=== PATIENT | female | born 1970 | race Caucasian/White ===

== ENCOUNTER 2020-03-20 22:00 | Emergency (ER) | payer OTHER ==
[~2020-03-20 22:00] MED LIST: MACROBID100 MG PO
[2020-03-20 23:25] LABS: BASOPHIL 0.3 % (0-2); EOSINOPHIL 2.8 % (0-5); HCT 37.5 % (37.0-47.0); HGB 11.8 g/dl (12.5-16.0); LYMPHOCYTE 23.6 % (15-48); MCH 29.3 pg (25.0-31.0); MCHC 31.5 g/dL (32.0-36.0); MCV 93.1 fL (78.0-100.0); MPV 9.3 fL (6.0-9.5); NRBC 0; PLT 116 K/uL (150-400); RBC 4.03 M/uL (4.20-5.40); RDW 13.2 % (11.5-14.0); WBC 3.5 K/uL (4.0-10.5)
[2020-03-20 23:54] LABS: ALBUMIN 3.3 g/dL (3.4-5.0); BILIRUBIN - TOTAL 0.5 mg/dL (0.2-1.0); BUN/CREAT RATIO (CALC) 20.7 RATIO; CREATININE 0.58 mg/dL (0.51-0.95); GLOBULIN (CALCULATION) 4.1 g/dL; POTASSIUM 4.1 mmol/L (3.5-5.1); TOTAL PROTEIN 7.4 g/dL (6.4-8.2)
[2020-03-21 00:11] LABS: CORONAVIRUS 2019 SARS-COV-2 POSITIVE (NEGATIVE); INFLUENZA A NAA NEGATIVE (NEGATIVE)
[2020-03-21] MEDS ORDERED: PULMICORT0.5 MG/2 M NEB (01:01)
== END 2020-03-21 03:26 | disposition home or self-care (01) ==
LOC: FER 22:00
PROVIDERS: Emergency Medicine
DX: U07.1 COVID-19 (principal); I10 Essential (primary) hypertension; E03.9 Hypothyroidism, unspecified; Z79.899 Other long term (current) drug therapy
CPT/HCPCS: 36415; 71045; 80053; 83605; 85025; 87040; 87880; J2060; J7030; J7050; M0239; U0002

== ENCOUNTER 2020-03-25 12:21 | Emergency (ER) | payer OTHER ==
[~2020-03-25 12:21] MED LIST changes: +PULMICORT0.5 MG/2 M NEB
[2020-03-25 13:26] LABS: BASOPHIL 0.2 % (0-2); EOSINOPHIL 0.2 % (0-5); HCT 38.7 % (37.0-47.0); HGB 12.6 g/dl (12.5-16.0); LYMPHOCYTE 23.9 % (15-48); MCH 29.1 pg (25.0-31.0); MCHC 32.6 g/dL (32.0-36.0); MCV 89.4 fL (78.0-100.0); MONOCYTE 6.8 % (0-12); MPV 8.9 fL (6.0-9.5); NEUTROPHIL 68.1 % (41-80); NRBC 0; PLT 171 K/uL (150-400); RBC 4.33 M/uL (4.20-5.40); RDW 13.2 % (11.5-14.0); WBC 6.6 K/uL (4.0-10.5)
[2020-03-25 14:17] LABS: BUN/CREAT RATIO (CALC) 46.6 RATIO; CREATININE 0.58 mg/dL (0.51-0.95); POTASSIUM 3.4 mmol/L (3.5-5.1)
== END 2020-03-25 14:20 | disposition home or self-care (01) ==
LOC: FER 12:21
PROVIDERS: Emergency Medicine
DX: U07.1 COVID-19 (principal); I10 Essential (primary) hypertension; Z79.899 Other long term (current) drug therapy
CPT/HCPCS: 36415; 71045; 80048; 85025

== ENCOUNTER 2020-12-04 12:24 | Emergency (ER) | payer OTHER ==
[~2020-12-04] VITALS: Ht 160 cm; Wt 93.0 kg
[2020-12-04 14:45] LABS: BASOPHIL 0.6 % (0-2); EOSINOPHIL 1.7 % (0-5); HCT 39.1 % (37.0-47.0); HGB 12.5 g/dl (12.5-16.0); LYMPHOCYTE 21.9 % (15-48); MCH 29.1 pg (25.0-31.0); MCV 91.1 fL (78.0-100.0); MPV 9.7 fL (6.0-9.5); NEUTROPHIL 67.5 % (41-80); NRBC 0; PLT 145 K/uL (150-400); RBC 4.29 M/uL (4.20-5.40); RDW 13.6 % (11.5-14.0); WBC 6.3 K/uL (4.0-10.5)
[2020-12-04 14:59] LABS: BUN/CREAT RATIO (CALC) 37.9 RATIO; CREATININE 0.58 mg/dL (0.51-0.95); POTASSIUM 4.6 mmol/L (3.5-5.1)
[2020-12-04] MEDS ORDERED: MEDROL 4MG DOSEP4 MG PO (15:38)
== END 2020-12-04 16:05 | disposition home or self-care (01) ==
LOC: FER 12:24
PROVIDERS: Nurse Practitioner Family
DX: G89.29 Other chronic pain (principal); I10 Essential (primary) hypertension; Z79.899 Other long term (current) drug therapy; Z79.82 Long term (current) use of aspirin; Z86.16 Personal history of COVID-19
CPT/HCPCS: 36415; 71045; 80048; 83880; 85025; J1100

== ENCOUNTER 2021-01-31 18:39 | Emergency (ER) | payer OTHER ==
[~2021-01-31 18:39] MED LIST changes: +MEDROL 4MG DOSEP4 MG PO
[2021-01-31 23:41] LABS: BASOPHIL 0.8 % (0-2); EOSINOPHIL 0.7 % (0-5); HCT 37.5 % (37.0-47.0); LYMPHOCYTE 15.2 % (15-48); MCH 29.1 pg (25.0-31.0); MONOCYTE 8.3 % (0-12); MPV 9.6 fL (6.0-9.5); NEUTROPHIL 74.7 % (41-80); NRBC 0; PLT 212 K/uL (150-400); RBC 4.12 M/uL (4.20-5.40); RDW 13.7 % (11.5-14.0); WBC 8.8 K/uL (4.0-10.5)
[2021-01-31 23:56] LABS: ALBUMIN 4.2 g/dL (3.4-5.0); BILIRUBIN - TOTAL 0.5 mg/dL (0.2-1.0); BUN/CREAT RATIO (CALC) 6.2 RATIO; CREATININE 1.12 mg/dL (0.51-0.95); POTASSIUM 3.9 mmol/L (3.5-5.1); TOTAL PROTEIN 8.2 g/dL (6.4-8.2)
[2021-02-01 00:14] LABS: CORONAVIRUS 2019 SARS-COV-2 NEGATIVE (NEGATIVE); INFLUENZA A NAA NEGATIVE (NEGATIVE)
[2021-02-01] MEDS ORDERED: PROMETHAZINE/C120 ML PO (03:11)
== END 2021-02-01 06:54 | disposition home or self-care (01) ==
LOC: FER 18:39
PROVIDERS: Emergency Medicine
DX: R06.00 Dyspnea, unspecified (principal); U09.9 Post COVID-19 condition, unspecified; I10 Essential (primary) hypertension; Z20.822 Contact with and (suspected) exposure to COVID-19
CPT/HCPCS: 36415; 36600; 71045; 71275; 80053; 82803; 84484; 85025; 85379; 93005; J1885; J2930; J7030; Q9967; U0002

== ENCOUNTER 2021-04-19 16:10 | Emergency (ER) | payer OTHER ==
[~2021-04-19 16:10] MED LIST changes: +PROMETHAZINE/C120 ML PO
[2021-04-19 17:28] LABS: EOSINOPHIL 2.2 % (0-5); HGB 11.2 g/dl (12.5-16.0); LYMPHOCYTE 30.6 % (15-48); MCH 28.4 pg (25.0-31.0); MCV 88.8 fL (78.0-100.0); MONOCYTE 9.8 % (0-12); NEUTROPHIL 56.2 % (41-80); NRBC 0; PLT 179 K/uL (150-400); RBC 3.94 M/uL (4.20-5.40); RDW 13.2 % (11.5-14.0); WBC 5.9 K/uL (4.0-10.5)
[2021-04-19 18:42] LABS: ALBUMIN 3.7 g/dL (3.4-5.0); BILIRUBIN - TOTAL 0.4 mg/dL (0.2-1.0); BUN/CREAT RATIO (CALC) 9.2 RATIO; C-REACTIVE PROTEIN 0.3 mg/dL (<=0.90); CREATININE 0.65 mg/dL (0.51-0.95); FT4 (FREE T4) 0.9 ng/dL (0.76-1.46); GLOBULIN (CALCULATION) 4.6 g/dL; MAGNESIUM 1.9 mg/dL (1.8-2.4); POTASSIUM 3.5 mmol/L (3.5-5.1); TOTAL PROTEIN 8.3 g/dL (6.4-8.2)
[2021-04-19] MEDS ORDERED: FIORICET1 EACH PO (21:13)
== END 2021-04-19 22:08 | disposition home or self-care (01) ==
LOC: FER 16:10
PROVIDERS: Emergency Medicine
DX: E03.9 Hypothyroidism, unspecified (principal); R51.9 Headache, unspecified; I10 Essential (primary) hypertension; Z86.16 Personal history of COVID-19
CPT/HCPCS: 36415; 71045; 80053; 82728; 83615; 83735; 83880; 84145; 84439; 84443; 84484; 85025; 86140; 93005; C9113; J1885; J3030

== ENCOUNTER 2021-09-07 11:16 | Emergency (ER) | payer OTHER ==
[~2021-09-07 11:16] MED LIST changes: +FIORICET1 EACH PO
[2021-09-07 12:31] LABS: BASOPHIL 0.5 % (0-2); BILIRUBIN 1+ mg/dL (NEGATIVE); BLOOD NEGATIVE Ery/uL (NEGATIVE); CLARITY CLEAR (CLEAR); COLOR YELLOW (YELLOW); EOSINOPHIL 1.1 % (0-5); GLUCOSE (U) NORMAL (NORMAL); HCT 34.6 % (37.0-47.0); HGB 10.7 g/dl (12.5-16.0); LEUKOCYTES NEGATIVE Leu/uL (NEGATIVE); LYMPHOCYTE 13.8 % (15-48); MCHC 30.9 g/dL (32.0-36.0); MCV 90.6 fL (78.0-100.0); MPV 10.2 fL (6.0-9.5); NEUTROPHIL 75.3 % (41-80); NITRITE NEGATIVE (NEGATIVE); NRBC 0; PLT 157 K/uL (150-400); PROTEIN TRACE (LOW) mg/dL (NEGATIVE); RBC 3.82 M/uL (4.20-5.40); RDW 13.8 % (11.5-14.0); SPECIFIC GRAVITY >=1.030 (1.001-1.030); WBC 6.2 K/uL (4.0-10.5)
[2021-09-07 12:48] LABS: MUCOUS TRACE
[2021-09-07 12:50] LABS: CREATININE 0.6 mg/dL (0.51-0.95); POTASSIUM 4.1 mmol/L (3.5-5.1)
[2021-09-07 12:51] LABS: ALBUMIN 3.6 g/dL (3.4-5.0); BILIRUBIN - TOTAL 0.6 mg/dL (0.2-1.0); GLOBULIN (CALCULATION) 4.8 g/dL; TOTAL PROTEIN 8.4 g/dL (6.4-8.2)
[2021-09-07] MEDS ORDERED: ONDANSETRON ODT4 MG PO (13:01)
[2021-09-07] MEDS ORDERED: LOMOTIL1 EACH PO (13:01)
== END 2021-09-07 13:55 | disposition home or self-care (01) ==
LOC: FER 11:16
PROVIDERS: Emergency Medicine
DX: K52.9 Noninfective gastroenteritis and colitis, unspecified (principal); I10 Essential (primary) hypertension
CPT/HCPCS: 36415; 74022; 80053; 81001; 85025; J2405; J7030

== ENCOUNTER 2021-09-11 11:05 | Emergency (ER) | payer OTHER ==
[~2021-09-11 11:05] MED LIST changes: +LOMOTIL1 EACH PO; +ONDANSETRON ODT4 MG PO
[2021-09-11 12:29] LABS: BASOPHIL 0.3 % (0-2); EOSINOPHIL 0.5 % (0-5); HCT 32.8 % (37.0-47.0); HGB 10.6 g/dl (12.5-16.0); LYMPHOCYTE 13.1 % (15-48); MCHC 32.3 g/dL (32.0-36.0); MCV 86.8 fL (78.0-100.0); MONOCYTE 10.5 % (0-12); MPV 10.1 fL (6.0-9.5); NEUTROPHIL 75.3 % (41-80); NRBC 0; PLT 171 K/uL (150-400); RBC 3.78 M/uL (4.20-5.40); WBC 5.8 K/uL (4.0-10.5)
[2021-09-11 12:43] LABS: ALBUMIN 3.7 g/dL (3.4-5.0); BILIRUBIN - TOTAL 0.7 mg/dL (0.2-1.0); BUN/CREAT RATIO (CALC) 19.7 RATIO; CREATININE 0.61 mg/dL (0.51-0.95); GLOBULIN (CALCULATION) 4.8 g/dL; POTASSIUM 3.2 mmol/L (3.5-5.1); TOTAL PROTEIN 8.5 g/dL (6.4-8.2)
[2021-09-11 13:24] LABS: LACTIC ACID 1.6 mmol/L (0.4-1.9)
[2021-09-11 13:25] LABS: BILIRUBIN 1+ mg/dL (NEGATIVE); BLOOD TRACE-INTACT Ery/uL (NEGATIVE); CLARITY CLEAR (CLEAR); COLOR YELLOW (YELLOW); GLUCOSE (U) NORMAL (NORMAL); LEUKOCYTES 1+ Leu/uL (NEGATIVE); NITRITE NEGATIVE (NEGATIVE); PROTEIN 1+ mg/dL (NEGATIVE); SPECIFIC GRAVITY 1.025 (1.001-1.030)
[2021-09-11 13:38] LABS: BACTERIA 1+; URINARY RBC RARE; URINARY WBC 20-50
[2021-09-11] MEDS ORDERED: CIPRO500 MG PO (16:21)
[2021-09-11] MEDS ORDERED: CYCLOBENZAPRINE10 MG PO (16:21)
[2021-09-11] MEDS ORDERED: NORCO 5-325 TA1 EACH PO (16:21)
[2021-09-11] MEDS ORDERED: METRONIDAZOLE500 MG PO (16:21)
== END 2021-09-11 17:02 | disposition home or self-care (01) ==
LOC: FER 11:05
PROVIDERS: Nurse Practitioner Family
DX: K52.9 Noninfective gastroenteritis and colitis, unspecified (principal); Z88.8 Allergy status to other drugs, medicaments and biological substances
CPT/HCPCS: 36415; 80053; 81001; 83605; 85025; J1885; J2405; J7030; Q9967

== ENCOUNTER 2021-10-05 15:44 | Emergency (ER) | payer OTHER ==
[~2021-10-05 15:44] MED LIST changes: +CIPRO500 MG PO; +CYCLOBENZAPRINE10 MG PO; +METRONIDAZOLE500 MG PO; +NORCO 5-325 TA1 EACH PO
[2021-10-05 18:45] LABS: BASOPHIL 0.6 % (0-2); EOSINOPHIL 3.2 % (0-5); HCT 33.8 % (37.0-47.0); HGB 10.5 g/dl (12.5-16.0); MCH 27.5 pg (25.0-31.0); MCHC 31.1 g/dL (32.0-36.0); MCV 88.5 fL (78.0-100.0); MPV 10.8 fL (6.0-9.5); NEUTROPHIL 64.1 % (41-80); NRBC 0; PLT 165 K/uL (150-400); RBC 3.82 M/uL (4.20-5.40); RDW 13.9 % (11.5-14.0); WBC 6.9 K/uL (4.0-10.5)
[2021-10-05 18:51] LABS: ALBUMIN 3.5 g/dL (3.4-5.0); BILIRUBIN - TOTAL 0.5 mg/dL (0.2-1.0); BUN/CREAT RATIO (CALC) 14.4 RATIO; CREATININE 0.9 mg/dL (0.51-0.95); GLOBULIN (CALCULATION) 4.6 g/dL; POTASSIUM 4.1 mmol/L (3.5-5.1); TOTAL PROTEIN 8.1 g/dL (6.4-8.2)
[2021-10-05 18:53] LABS: INR 1.22 (0.9-1.2); PTT 32.2 SECONDS (24.9-34.6)
[2021-10-05 18:58] LABS: LACTIC ACID 1.7 mmol/L (0.4-1.9)
[2021-10-05 19:16] LABS: BILIRUBIN NEGATIVE (NEGATIVE); BLOOD 1+ Ery/uL (NEGATIVE); CLARITY CLEAR (CLEAR); COLOR YELLOW (YELLOW); GLUCOSE (U) NORMAL (NORMAL); LEUKOCYTES 2+ Leu/uL (NEGATIVE); NITRITE NEGATIVE (NEGATIVE); PROTEIN NEGATIVE (NEGATIVE); SPECIFIC GRAVITY <=1.005 (1.001-1.030); UROBILINOGEN 0.2 mg/dL (0.2-1.0); pH 6.5 (5.0-9.0)
[2021-10-05 19:26] LABS: BACTERIA 1+
== END 2021-10-05 21:05 | disposition home or self-care (01) ==
LOC: FER 15:44
PROVIDERS: Emergency Medicine
DX: I95.9 Hypotension, unspecified (principal); I10 Essential (primary) hypertension; Z87.891 Personal history of nicotine dependence; Z86.16 Personal history of COVID-19; Z79.82 Long term (current) use of aspirin; Z79.899 Other long term (current) drug therapy
CPT/HCPCS: 36415; 71045; 80053; 81001; 83605; 84484; 85025; 85610; 85730; 87040; 87088; 93005; J7030